=== PATIENT | female | born 1995 | race Caucasian/White ===

== ENCOUNTER 2023-01-31 22:28 | Emergency (ER) | payer MEDICAID ==
[~2023-01-31] VITALS: Ht 154.9 cm; Wt 61.4 kg
[2023-01-31 22:35] VITALS: BP 109/72
[2023-02-01] MEDS ORDERED: SUMAtriptan 25 MG tablet PO ONE ×2 (01:10→01:15)
[2023-02-01] MEDS ORDERED: ondansetron 4mg rapidly disintigrating tab PO ONE (01:15)
[2023-02-01] MEDS ORDERED: SUMA25TA35 PO (02:23)
== END 2023-02-01 01:40 | disposition home or self-care (01) ==
LOC: ER 22:28
DX: G43.909 Migraine, unspecified, not intractable, without status migrainosus (principal); F12.10 Cannabis abuse, uncomplicated
CPT/HCPCS: 99283

== ENCOUNTER 2023-03-19 23:12 | Emergency (ER) | payer MEDICAID ==
[~2023-03-19] VITALS: Ht 154.9 cm; Wt 62.6 kg
[2023-03-19 23:28] VITALS: BP 137/82; PULSE 98; RESP 18; TEMP 98.8; O2SAT 99
[2023-03-20 00:14] LABS: URINE HCG NEGATIVE (NEG)
[2023-03-20 00:32] LABS: COLOR,URINE YELLOW (Yellow); GLUCOSE, URINE NEGATIVE (Neg); KETONES,URINE NEGATIVE (Neg); LEUKOCYTE ESTERASE ,URINE MODERATE (Neg); NITRITES, URINE NEGATIVE (Neg); OCCULT BLOOD,URINE MODERATE (Neg); PH,URINE 6.5 (4.8-8.0); PROTEIN,URINE TRACE mg/dl (Neg); UROBILINOGEN,URINE 0.2 E.U/dL (0.2-1.0)
[2023-03-20 00:39] LABS: CLARITY,URINE SLIGHTLY CLOUDY (Clear); UA COLLECTION TYPE CLN CATCH MIDSTREAM
[2023-03-20 00:41] LABS: BACTERIA,URINE FEW /HPF (Neg); MUCUS STRANDS FEW /LPF (Neg); SQUAMOUS EPITHELIAL CELL,UR FEW /LPF (FEW); TRANSITIONAL EPI CELLS,URINE FEW /HPF
[2023-03-20 00:42] LABS: WBC CLUMPS,URINE FEW /HPF (NEGATIVE)
[2023-03-20] MEDS ORDERED: CEPH250T PO (01:35)
[2023-03-20] MEDS ORDERED: cephalexin 250mg capsule PO ONE (01:35)
[2023-03-20] MEDS ORDERED: ibuprofen tablet 400 MG TABLET PO ONE (01:45)
== END 2023-03-20 02:13 | disposition home or self-care (01) ==
LOC: ER 23:13
DX: N39.0 Urinary tract infection, site not specified (principal); I10 Essential (primary) hypertension
CPT/HCPCS: 81001; 81025; 87077; 87088; 87186; 99283

== ENCOUNTER 2023-07-22 15:57 | Emergency (ER) | payer MEDICAID ==
[~2023-07-22] VITALS: Ht 154.9 cm; Wt 63.2 kg
[2023-07-22 17:03] LABS: URINE HCG NEGATIVE (NEG)
[2023-07-22 17:15] LABS: URINE AMPHETAMINE SCREEN NEGATIVE (Neg); URINE BARBITUATE SCREEN NEGATIVE (Neg); URINE BENZODIAZEPINES SCREEN NEGATIVE (Neg); URINE CANNABINOID SCREEN POSITIVE (Neg); URINE COCAINE SCREEN POSITIVE (Neg); URINE METHADONE SCREEN NEGATIVE (Neg); URINE OPIATE SCREEN NEGATIVE (Neg); URINE PHENCYCLIDINE SCREEN NEGATIVE (Neg)
[2023-07-22 18:25] LABS: BASOPHILS % (AUTO) 0.4 % (0-1); EOSINOPHILS # (AUTO) 0.1 X10'3 (0-0.9); EOSINOPHILS % (AUTO) 0.6 % (0-6); HEMATOCRIT 39.9 % (35.0-45.0); HEMOGLOBIN 13.6 g/dl (12.0-16.0); LYMPHOCYTES # (AUTO) 2.4 X10'3 (1.1-4.8); LYMPHOCYTES % (AUTO) 19.7 % (21-51); MEAN CORPUSCULAR HEMOGLOBIN 30.6 PG (27.0-31.0); MEAN CORPUSCULAR VOLUME 90.1 FL (78-98); MEAN PLATELET VOLUME 8.4 FL (7.4-10.4); MONOCYTES # (AUTO) 0.8 X10'3 (0-0.9); MONOCYTES % (AUTO) 6.7 % (2-12); NEUTROPHILS # (AUTO) 8.9 X10'3 (1.8-7.7); NEUTROPHILS % (AUTO) 72.6 % (42-75); PLATELET COUNT 312 X10'3 (140-440); RED BLOOD COUNT 4.43 X10'6 (4.20-5.60); RED CELL DISTRIBUTION WIDTH 13.4 % (11.5-14.5); WHITE BLOOD COUNT 12.2 X10'3 (4.5-11.0)
[2023-07-22 18:32] LABS: ALANINE AMINOTRANSFERASE 20 U/L (12-78); ALBUMIN/GLOBULIN RATIO 1.1 (1.1-1.5); ALKALINE PHOSPHATASE 72 IU/L (46-116); ANION GAP 7 (8-16); ASPARTATE AMINO TRANSFERASE 13 U/L (10-37); BILIRUBIN,TOTAL 0.4 MG/DL (0.1-1.0); BLOOD UREA NITROGEN 11 MG/DL (7-18); BUN/CREATININE RATIO 12.5 (10.0-20.0); CALCIUM 9.4 MG/DL (8.5-10.1); CHLORIDE 102 MMOL/L (99-107); CREATININE 0.88 MG/DL (0.40-0.90); ETHANOL < 10 MG/DL (<10); GLUCOSE 101 MG/DL (70-104); POTASSIUM 3.5 MMOL/L (3.5-5.1); SODIUM 136 MMOL/L (135-145); TOTAL CARBON DIOXIDE 27.4 MMOL/L (24-32); TOTAL PROTEIN 7.8 G/DL (6.4-8.2); eCRCL 73 ML/MIN; eGFR 78 ML/MIN
[2023-07-22] MEDS: NICOTINE POLACRILEX 2 MG LOZENGE BC PRN (18:38)
[2023-07-22 19:26] LABS: THYROID STIMULATING HORMONE 4.62 ulU/ml (0.34-4.50)
[2023-07-22] MEDS ORDERED: LITH150C8 PO (19:39)
[2023-07-22] MEDS ORDERED: FLUO40CA10 PO (19:44)
[2023-07-22] MEDS ORDERED: BREX1TAB PO (19:45)
[2023-07-22] MEDS ORDERED: TRAZ-251 PO (19:46)
[2023-07-22] MEDS ORDERED: traZODone 50mg tablet PO PRN (19:55)
[2023-07-22] MEDS: lithium carbonate 150mg capsule PO SCH (20:06)
[2023-07-22] MEDS ORDERED: FLUoxetine 20mg capsule PO SCH (21:00)
[2023-07-23] MEDS: NICOTINE POLACRILEX 2 MG LOZENGE BC PRN (05:01)
[2023-07-23] MEDS ORDERED: SUMAtriptan 25 MG tablet PO ONE (05:15)
[2023-07-23] MEDS: lithium carbonate 150mg capsule PO SCH (09:43)
[2023-07-23 12:59] VITALS: BP 96/56; PULSE 82; RESP 20; TEMP 98.3; O2SAT 99
== END 2023-07-23 13:09 | disposition still patient (30) ==
LOC: ER 15:57
DX: R45.851 Suicidal ideations (principal); Z20.822 Contact with and (suspected) exposure to COVID-19; F12.10 Cannabis abuse, uncomplicated; Z79.899 Other long term (current) drug therapy
CPT/HCPCS: 36415; 80053; 80305; 80320; 81025; 84443; 85025; 87811; 99285

== ENCOUNTER 2023-12-11 00:55 | Emergency (ER) | payer MEDICAID ==
[~2023-12-11] VITALS: Ht 157.5 cm; Wt 59.1 kg
[~2023-12-11 00:55] MED LIST: BREX1TAB PO; FLUO40CA10 PO; LITH150C8 PO; TRAZ-251 PO
[2023-12-11 01:27] LABS: BASOPHILS # (AUTO) 0.1 X10'3 (0-0.2); BASOPHILS % (AUTO) 0.7 % (0-1); EOSINOPHILS # (AUTO) 0.1 X10'3 (0-0.9); EOSINOPHILS % (AUTO) 1.2 % (0-6); HEMATOCRIT 36.5 % (35.0-45.0); HEMOGLOBIN 12.4 g/dl (12.0-16.0); LYMPHOCYTES # (AUTO) 3.6 X10'3 (1.1-4.8); LYMPHOCYTES % (AUTO) 40.8 % (21-51); MEAN CORPUSCULAR HEMOGLOBIN 30.8 PG (27.0-31.0); MEAN CORPUSCULAR VOLUME 90.6 FL (78-98); MEAN PLATELET VOLUME 8.2 FL (7.4-10.4); MONOCYTES # (AUTO) 0.7 X10'3 (0-0.9); MONOCYTES % (AUTO) 8.6 % (2-12); NEUTROPHILS # (AUTO) 4.2 X10'3 (1.8-7.7); NEUTROPHILS % (AUTO) 48.7 % (42-75); PLATELET COUNT 243 X10'3 (140-440); RED BLOOD COUNT 4.03 X10'6 (4.20-5.60); RED CELL DISTRIBUTION WIDTH 13.5 % (11.5-14.5); WHITE BLOOD COUNT 8.7 X10'3 (4.5-11.0)
[2023-12-11 01:28] LABS: URINE HCG NEGATIVE (NEG)
[2023-12-11 01:41] LABS: ALBUMIN 3.4 G/DL (3.4-5.0); ANION GAP 4 (8-16); BLOOD UREA NITROGEN 12 MG/DL (7-18); CALCIUM 8.7 MG/DL (8.5-10.1); CHLORIDE 104 MMOL/L (99-107); CREATININE 0.75 MG/DL (0.40-0.90); ETHANOL < 10 MG/DL (<10); GLUCOSE 98 MG/DL (70-104); POTASSIUM 3.4 MMOL/L (3.5-5.1); SALICYLATE 1.8 MG/DL (4.0-20.0); SODIUM 138 MMOL/L (135-145); TOTAL CARBON DIOXIDE 30.3 MMOL/L (24-32); eCRCL 82 ML/MIN; eGFR > 90 ML/MIN
[2023-12-11 01:43] LABS: URINE AMPHETAMINE SCREEN NEGATIVE (Neg); URINE BARBITUATE SCREEN NEGATIVE (Neg); URINE BENZODIAZEPINES SCREEN NEGATIVE (Neg); URINE CANNABINOID SCREEN NEGATIVE (Neg); URINE COCAINE SCREEN NEGATIVE (Neg); URINE METHADONE SCREEN NEGATIVE (Neg); URINE OPIATE SCREEN NEGATIVE (Neg); URINE PHENCYCLIDINE SCREEN NEGATIVE (Neg)
[2023-12-11 01:47] LABS: ACETAMINOPHEN < 2.0 UG/ML (10-30)
[2023-12-11] MEDS: nicotine 21mg patch - 24 hr TD SCH (09:24)
[2023-12-11] MEDS: SUMAtriptan 25 MG tablet PO ONE (10:27)
[2023-12-11 11:11] VITALS: BP 85/57; PULSE 82; RESP 16; TEMP 97.9; O2SAT 97
== END 2023-12-11 11:14 | disposition home or self-care (01) ==
LOC: ER 00:56
DX: R45.851 Suicidal ideations (principal); Z20.822 Contact with and (suspected) exposure to COVID-19; F12.90 Cannabis use, unspecified, uncomplicated; Z79.899 Other long term (current) drug therapy
CPT/HCPCS: 36415; 80048; 80305; 80320; 80329; 81025; 85025; 87811; 99285

== ENCOUNTER 2024-02-01 22:08 | Emergency (ER) | payer MEDICAID ==
[~2024-02-01] VITALS: Ht 153.7 cm; Wt 63.6 kg
[2024-02-01] MEDS: charcoal, activated 50 GM/240 ML bottle PO ONE (22:53)
[2024-02-01 23:08] LABS: BILIRUBIN,URINE NEGATIVE (Neg); CLARITY,URINE CLEAR (Clear); COLOR,URINE STRAW (Yellow); GLUCOSE, URINE NEGATIVE (Neg); KETONES,URINE NEGATIVE (Neg); LEUKOCYTE ESTERASE ,URINE NEGATIVE (Neg); NITRITES, URINE NEGATIVE (Neg); OCCULT BLOOD,URINE SMALL (Neg); PH,URINE 6.5 (4.8-8.0); PROTEIN,URINE NEGATIVE (Neg); UROBILINOGEN,URINE 0.2 E.U/dL (0.2-1.0)
[2024-02-01 23:09] LABS: URINE HCG NEGATIVE (NEG)
[2024-02-01 23:14] LABS: UA COLLECTION TYPE CLN CATCH MIDSTREAM
[2024-02-01 23:15] LABS: MUCUS STRANDS FEW /LPF (Neg); SQUAMOUS EPITHELIAL CELL,UR MODERATE /LPF (FEW); WBC,URINE 0-4 /HPF (0-4)
[2024-02-01 23:16] LABS: BACTERIA,URINE 2+ /HPF (Neg); RBC,URINE 0-2 /HPF (0-2)
[2024-02-01 23:21] LABS: URINE AMPHETAMINE SCREEN NEGATIVE (Neg); URINE BARBITUATE SCREEN NEGATIVE (Neg); URINE BENZODIAZEPINES SCREEN NEGATIVE (Neg); URINE CANNABINOID SCREEN POSITIVE (Neg); URINE COCAINE SCREEN NEGATIVE (Neg); URINE METHADONE SCREEN NEGATIVE (Neg); URINE OPIATE SCREEN NEGATIVE (Neg); URINE PHENCYCLIDINE SCREEN NEGATIVE (Neg)
[2024-02-01] MEDS ORDERED: SUMA100T16 PO (23:56)
[2024-02-01] MEDS ORDERED: LAMO25TA5 PO (23:56)
[2024-02-01] MEDS ORDERED: VENL-191 PO (23:56)
[2024-02-02 00:12] LABS: ALBUMIN 3.4 G/DL (3.4-5.0); ANION GAP 8 (8-16); BLOOD UREA NITROGEN 10 MG/DL (7-18); BUN/CREATININE RATIO 12.7 (10.0-20.0); CALCIUM 8.3 MG/DL (8.5-10.1); CHLORIDE 104 MMOL/L (99-107); CREATININE 0.79 MG/DL (0.40-0.90); ETHANOL < 10 MG/DL (<10); GLUCOSE 99 MG/DL (70-104); POTASSIUM 3.4 MMOL/L (3.5-5.1); SALICYLATE 1.3 MG/DL (4.0-20.0); SODIUM 140 MMOL/L (135-145); THYROID STIMULATING HORMONE 3.29 ulU/ml (0.34-4.50); TOTAL CARBON DIOXIDE 27.8 MMOL/L (24-32); eCRCL 79 ML/MIN; eGFR 87 ML/MIN
[2024-02-02 00:18] LABS: ACETAMINOPHEN < 2.0 UG/ML (10-30)
[2024-02-02 00:19] LABS: BASOPHILS # (AUTO) 0.1 X10'3 (0-0.2); BASOPHILS % (AUTO) 0.6 % (0-1); EOSINOPHILS # (AUTO) 0.1 X10'3 (0-0.9); EOSINOPHILS % (AUTO) 0.9 % (0-6); HEMATOCRIT 37.8 % (35.0-45.0); HEMOGLOBIN 12.6 g/dl (12.0-16.0); LYMPHOCYTES # (AUTO) 2.2 X10'3 (1.1-4.8); LYMPHOCYTES % (AUTO) 25.2 % (21-51); MEAN CORPUSCULAR HEMOGLOBIN 30.2 PG (27.0-31.0); MEAN CORPUSCULAR HGB CONC 33.3 g/dL (33.0-36.5); MEAN CORPUSCULAR VOLUME 90.6 FL (78-98); MEAN PLATELET VOLUME 8.6 FL (7.4-10.4); MONOCYTES # (AUTO) 0.6 X10'3 (0-0.9); MONOCYTES % (AUTO) 7.2 % (2-12); NEUTROPHILS # (AUTO) 5.8 X10'3 (1.8-7.7); NEUTROPHILS % (AUTO) 66.1 % (42-75); PLATELET COUNT 228 X10'3 (140-440); RED BLOOD COUNT 4.17 X10'6 (4.20-5.60); RED CELL DISTRIBUTION WIDTH 13.4 % (11.5-14.5); WHITE BLOOD COUNT 8.7 X10'3 (4.5-11.0)
[2024-02-02 05:46] VITALS: TEMP 97.8
[2024-02-02 07:10] VITALS: BP 111/72; PULSE 75; RESP 12; O2SAT 98
== END 2024-02-02 13:38 | disposition still patient (30) ==
LOC: ER 22:08
DX: T42.6X2A Poisoning by other antiepileptic and sedative-hypnotic drugs, intentional self-harm, initial encounter (principal); R45.851 Suicidal ideations; Z20.822 Contact with and (suspected) exposure to COVID-19; F32.A Depression, unspecified; F12.90 Cannabis use, unspecified, uncomplicated; R07.89 Other chest pain; Y92.89 Other specified places as the place of occurrence of the external cause
CPT/HCPCS: 36415; 80048; 80305; 80320; 80329; 81001; 81025; 84443; 85025; 87811; 93005; 99285

== ENCOUNTER 2024-11-02 17:49 | Emergency (ER) | payer SELFPAY | END 2024-11-02 19:24 | disposition left against medical advice (07) | LOC: ER 19:24 | DX: G43.909 Migraine, unspecified, not intractable, without status migrainosus (principal); Z53.21 Procedure and treatment not carried out due to patient leaving prior to being seen by health care provider ==